=== PATIENT | male | born 1965 ===

== ENCOUNTER 2016-07-30 07:12 | Day surgery (SDC) | payer OTHER ==
[2016-07-30] MEDS ORDERED: Lactated Ringer's 500 ML IV ONE (07:50)
[2016-07-30 08:07] VITALS: TEMP 97.5
[2016-07-30] MEDS ORDERED: Propofol 10 mg/ml Inj (20 ML) ONE (08:47)
[2016-07-30 09:37] VITALS: BP 102/68; PULSE 58; RESP 18; O2SAT 99
== END 2016-07-30 09:50 | disposition home or self-care (01) ==
LOC: H.ENDO 07:12
PROVIDERS: ATTEND Internal Medicine Gastroenterology
DX: Z12.11 Encounter for screening for malignant neoplasm of colon (principal); E78.5 Hyperlipidemia, unspecified; K57.30 Diverticulosis of large intestine without perforation or abscess without bleeding; D12.4 Benign neoplasm of descending colon; K64.8 Other hemorrhoids